=== PATIENT | male | born 1950 | race Caucasian/White ===

== ENCOUNTER → 2023-09-10 12:49 | Outpatient (REF) | payer MEDICARE, OTHER, SELFPAY | LOC: HWRAD 12:49 | PROVIDERS: ATTENDING PHYSICIAN Family Medicine | DX: Z00.01 Encounter for general adult medical examination with abnormal findings (principal); M25.571 Pain in right ankle and joints of right foot; R73.9 Hyperglycemia, unspecified | CPT/HCPCS: 73610 ==

== ENCOUNTER → 2023-12-15 09:32 | Outpatient (REF) | payer MEDICARE, OTHER, SELFPAY ==
[2023-12-16 11:14] LABS: PSA Total 8.4 ng/mL (0.0-4.0)
== END ==
LOC: REG 09:32
PROVIDERS: ATTENDING PHYSICIAN Urology; FAMILY PHYSICIAN Family Medicine
DX: R97.20 Elevated prostate specific antigen [PSA] (principal)
CPT/HCPCS: 36415; 84153; 84154

== ENCOUNTER → 2024-01-29 10:37 | Outpatient (REF) | payer MEDICARE, OTHER, SELFPAY | LOC: HWRAD 10:37 | PROVIDERS: ATTENDING PHYSICIAN Family Medicine | DX: R10.32 Left lower quadrant pain (principal) | CPT/HCPCS: 74177; Q9967 ==

== ENCOUNTER → 2024-12-15 07:37 | Outpatient (REF) | payer MEDICARE, OTHER, SELFPAY ==
[2024-12-15 09:02] LABS: % Basophils 1.2 % (0-2); % Eosinophils 4.1 % (0-6); % Immature Granulocytes 0.2 % (0-0.5); % Lymphocytes 29.3 % (20.5-51.1); % Monocytes 12.9 % (1.7-9.3); % Neutrophils 52.3 % (42.2-75.2); Absolute Basophils 0.1 10^3/uL (0-0.2); Absolute Eosinophils 0.2 10^3/uL (0-0.7); Absolute Lymphocytes 1.2 10^3/uL (1.2-3.4); Absolute Monocytes 0.5 10^3/uL (0.1-0.6); Absolute Neutrophils 2.1 10^3/uL (1.4-6.5); Hemoglobin 13.9 g/dL (13.0-18.0); Mean Corp Hgb Conc. 33.1 g/dL (33.0-37.0); Mean Corpuscular Hgb 29.5 pg (27.0-31.0); Mean Corpuscular Volume 89.2 fL (80.0-94.0); Mean Platelet Volume 11.7 fL (7.4-10.4); Nucleated Red Blood Cells % 0 % (-); Platelet Count 146 10^3/uL (130-400); Red Blood Cell Count 4.71 10^6/uL (4.70-6.10); Red Cell Dist. Width 14.6 % (11.5-14.5); White Blood Cell Count 4.1 10^3/uL (4.8-10.8)
[2024-12-15 09:49] LABS: ALT (SGPT) 21 U/L (0-50); AST (SGOT) 28 U/L (17-59); Albumin 4.4 g/dl (3.5-5.0); Alkaline Phosphatase 91 U/L (38-126); Blood Urea Nitrogen 18 mg/dl (9-20); Calcium 9.2 mg/dl (8.4-10.2); Carbon Dioxide 28 mmol/L (22-30); Chloride 106 mmol/L (98-107); Glucose 101 mg/dl (70-99); HDL Cholesterol 38 mg/dl; LDL Cholesterol, Calculated 129 mg/dl; Potassium 4.9 mmol/L (3.5-5.1); Sodium 142 mmol/L (135-145); Total Bilirubin 0.8 mg/dl (0.2-1.3); Total Cholesterol 188 mg/dl (50-199); Total Protein 6.7 g/dl (6.3-8.2); Triglyceride 107 mg/dl (10-149); Very Low Density Lipoprotein 21 mg/dl (0-30); eGFR > 60.00
[2024-12-15 10:19] LABS: Glycohemoglobin (HgbA1c) 6.1 % (4.0-5.6)
[2024-12-15 10:31] LABS: TSH 2.43 uIU/ml (0.47-4.68); Vitamin B12 377 pg/ml (239-931)
== END ==
LOC: REG 07:37
PROVIDERS: ATTENDING PHYSICIAN Family Medicine
DX: G62.9 Polyneuropathy, unspecified (principal); R73.03 Prediabetes; E78.2 Mixed hyperlipidemia; N52.9 Male erectile dysfunction, unspecified; Z79.899 Other long term (current) drug therapy
CPT/HCPCS: 36415; 80053; 80061; 82607; 83036; 84443; 85025

== ENCOUNTER → 2025-06-13 11:36 | Outpatient (REF) | payer MEDICARE, OTHER, SELFPAY ==
[2025-06-13 13:51] LABS: PSA, Total - Diagnostic 8.09 ng/ml (0.0-4.0)
== END ==
LOC: REG 11:36
PROVIDERS: ATTENDING PHYSICIAN Advanced Practice Midwife; FAMILY PHYSICIAN Family Medicine
DX: R97.20 Elevated prostate specific antigen [PSA] (principal)
CPT/HCPCS: 36415; 84153